=== PATIENT | male | born 1975 | race Two or more races ===

== ENCOUNTER 2017-02-14 22:08 | Emergency (ER) | payer OTHER ==
[~2017-02-14] VITALS: Ht 177.8 cm; Wt 98.0 kg
[~2017-02-14 22:08] MED LIST: LEVE500T8 PO
[2017-02-14] MEDS ORDERED: RISP.5 PO (22:22)
[2017-02-14] MEDS ORDERED: PHENY100 PO (22:22)
[2017-02-14] MEDS ORDERED: LEVE500T53 PO (22:22)
[2017-02-15] MEDS ORDERED: LORazepam 2 MG/ML VIAL IVP ONE (00:30)
[2017-02-15] MEDS ORDERED: LevETIRAcetam 1,000 MG in DEXTROSE 5%-WATER 100 ML IV ONE (00:30)
[2017-02-15 03:29] VITALS: BP 126/70
== END 2017-02-15 03:58 | disposition home or self-care (01) ==
LOC: EMS 22:11
DX: G40.909 Epilepsy, unspecified, not intractable, without status epilepticus (principal)
CPT/HCPCS: 36415; 80185; 96365; 96366; 96375; 99285; J0712; J2060; J7060

== ENCOUNTER 2017-03-13 06:27 | Emergency (ER) | payer OTHER ==
[~2017-03-13] VITALS: Ht 175.3 cm; Wt 98.0 kg
[~2017-03-13 06:27] MED LIST changes: +LEVE500T53 PO; -LEVE500T8 PO; +PHENY100 PO; +RISP.5 PO
[2017-03-13 07:17] LABS: BASOPHILS % (AUTO) 0.4 % (0.0-2.0); EOSINOPHILS % (AUTO) 0.8 % (1.0-6.0); HEMATOCRIT 49.7 % (41-53); HEMOGLOBIN 16.5 g/dL (13.5-17.5); LYMPHOCYTES # (AUTO) 1.3 K/uL (1.0-4.8); LYMPHOCYTES % (AUTO) 18.5 % (22.0-44.0); MEAN CORPUSCULAR HEMOGLOBIN 31.2 pg (26.0-34.0); MEAN CORPUSCULAR HGB CONC 33.2 G/dL (31.0-37.0); MEAN CORPUSCULAR VOLUME 94 fL (80-100); MONOCYTES # (AUTO) 0.6 K/uL (0.1-1.0); MONOCYTES % (AUTO) 8.1 % (2.0-9.0); NEUTROPHILS # (AUTO) 5.2 K/uL (1.8-7.7); NEUTROPHILS % (AUTO) 72.2 % (40.0-70.0); PLATELET COUNT (AUTO) 222 K/uL (150-450); RED BLOOD CELL COUNT(AUTO) 5.28 MIL/uL (4.50-5.90); RED CELL DISTRIBUTION WIDTH 13.3 % (11.5-14.5); WHITE BLOOD COUNT (AUTO) 7.2 K/uL (4.5-11.0)
[2017-03-13 07:27] LABS: ANION GAP 9 mmol/L (8-16); CARBON DIOXIDE 28 mmol/L (22-29); CHLORIDE 103 mmol/L (98-107); CREATININE 0.83 mg/dL (0.60-1.30); GLOMERULAR FILTR. RATE CALC > 60 mL/min (>60); POTASSIUM 3.9 mmol/L (3.5-5.1); SODIUM SERUM 140 mmol/L (136-145); UREA NITROGEN, BLOOD 12 mg/dL (7-18)
[2017-03-13 07:32] LABS: ALANINE AMINOTRANSFERASE 86 U/L (12-78); ALBUMIN 4.4 g/dL (3.4-5.0); ASPARTATE AMINOTRANSFERASE 47 U/L (15-37); BILIRUBIN,TOTAL 0.4 mg/dL (0.1-1.0)
[2017-03-13 15:30] VITALS: BP 119/66
== END 2017-03-13 15:38 | disposition home or self-care (01) ==
LOC: EEVIPCON 06:28 → EMS 06:28
DX: G40.909 Epilepsy, unspecified, not intractable, without status epilepticus (principal); Z87.820 Personal history of traumatic brain injury
CPT/HCPCS: 36415; 80053; 80185; 80307; 85025; 99285; G0480; G0482